=== PATIENT | female | born 1965 | race Asian ===

== ENCOUNTER 2018-02-02 14:25 | Inpatient (IN) | payer OTHER ==
[~2018-02-02 14:25] MED LIST: LIDOCAINE 2% (SDV) 5 ML INJ; METOCLOPRAMIDE 10 MG INJ
[2018-02-02 15:05] LABS: ADD MAN DIFF? NO
[2018-02-02 15:06] LABS: BASOPHILS % 0.8 % (0.0-2.0); EOSINOPHILS # 0.1 10^3/ul (0.0-0.5); EOSINOPHILS % 1.8 % (0.0-7.0); HEMOGLOBIN 14.2 g/dl (12.0-16.0); LYMPHOCYTES # 1.2 10^3/ul (0.8-2.9); MEAN CORPUSCULAR HEMOGLOBIN 29.7 pg (29.0-33.0); MEAN CORPUSCULAR HGB CONC 33.8 g/dl (32.0-37.0); MEAN CORPUSCULAR VOLUME 87.9 fl (82.0-101.0); MEAN PLATELET VOLUME 11.6 fl (7.4-10.4); MONOCYTE # 0.4 10^3/ul (0.3-0.9); NEUTROPHIL # 3.3 10^3/ul (1.6-7.5); NEUTROPHILS % 65.2 % (39.0-77.0); PLATELET COUNT 248 10^3/UL (140-415); RED BLOOD COUNT 4.78 10^6/ul (4.20-5.40); RED CELL DISTRIBUTION WIDTH 11.5 % (11.5-14.5)
[2018-02-02 15:27] LABS: ALANINE AMINOTRANSFERASE 33 IU/L (13-69); ALBUMIN/GLOBULIN RATIO 1.16; ALKALINE PHOSPHATASE 93 IU/L (42-121); ANION GAP 9 (5-13); ASPARTATE AMINO TRANSFERASE 33 IU/L (15-46); BILIRUBIN,INDIRECT 0.7 mg/dl (0-1.1); BILIRUBIN,TOTAL 0.7 mg/dl (0.2-1.3); BLOOD UREA NITROGEN 13 mg/dl (7-20); CARBON DIOXIDE 29 mmol/L (21-31); CHLORIDE 103 mmol/L (97-110); CREATININE 0.66 mg/dl (0.44-1.00); Estimated GFR > 60 mL/min (>60); GLUCOSE 99 mg/dl (70-220); POTASSIUM 3.7 mmol/L (3.5-5.1); SODIUM 141 mmol/L (135-144); TOTAL PROTEIN 9.3 g/dl (6.1-8.1)
[2018-02-02 15:28] LABS: INR 0.98; PROTIME 13.1 Sec (11.9-14.9)
[2018-02-02 15:29] LABS: PARTIAL THROMBOPLASTIN TIME 32.1 Sec (23.0-35.0)
[2018-02-02] MEDS ORDERED: FENTAnyl 50 MCG/ML VIAL (15:52)
[2018-02-02] MEDS ORDERED: MIDAZOLAM 1 MG/ML 2 ML INJ (15:53)
[2018-02-02] MEDS ORDERED: ONDANSETRON 4 MG INJ (16:08)
[2018-02-02] MEDS ORDERED: KETOROLAC 30 MG INJ IV (17:00)
[2018-02-02] MEDS: SOD CHLORIDE 0.9% 1,000 ML IV (17:00)
[2018-02-02] MEDS ORDERED: HYDROmorphONE 1 MG/5 ML IV SYRINGE IV ×2 (17:00)
[2018-02-02] MEDS ORDERED: hydrALAzine 20 MG INJ IV (17:00)
[2018-02-02] MEDS ORDERED: MEPERIDINE 25 MG INJ IV (17:00)
[2018-02-02] MEDS ORDERED: DIPHENHYDRAMINE 50 MG INJ IV (17:00)
[2018-02-02] MEDS ORDERED: FENTAnyl 50 MCG/ML VIAL IV ×2 (17:00)
[2018-02-02] MEDS: CEFAZOLIN 2 GM/50 ML (PMX) 50 ML IVPB (17:00)
[2018-02-02] MEDS ORDERED: LEVALBUTEROL (NEB) 1.25 MG/0.5 ML AMP HHN (17:00)
[2018-02-02] MEDS ORDERED: LABETALOL HCL 20MG INJ IV (17:00)
[2018-02-02] MEDS ORDERED: ONDANSETRON 4 MG INJ IV (19:00)
[2018-02-02] MEDS: HYDROmorphONE 1 MG/5 ML IV SYRINGE IV (19:08)
[2018-02-02] MEDS: ONDANSETRON 4 MG INJ IV (19:08)
[2018-02-02] MEDS: D5W-0.45 NACL + KCL 20 MEQ 1,000 ML IV (20:17)
[2018-02-02] MEDS: morphine 2 MG INJ IV (22:56)
[2018-02-03] MEDS: D5W-0.45 NACL + KCL 20 MEQ 1,000 ML IV ×2 (04:06→11:28)
[2018-02-03] MEDS: morphine 2 MG INJ IV ×2 (04:08→08:31)
[2018-02-03] MEDS: IBUPROFEN 400 MG TAB PO ×4 (06:00→17:13)
[2018-02-03 10:40] LABS: ADD MAN DIFF? NO
[2018-02-03 10:51] LABS: BASOPHILS % 0.4 % (0.0-2.0); EOSINOPHILS # 0.1 10^3/ul (0.0-0.5); EOSINOPHILS % 1.1 % (0.0-7.0); HEMATOCRIT 34.9 % (37.0-47.0); HEMOGLOBIN 11.5 g/dl (12.0-16.0); LYMPHOCYTES % 13.8 % (15.0-51.0); MEAN CORPUSCULAR HEMOGLOBIN 29.8 pg (29.0-33.0); MEAN CORPUSCULAR VOLUME 90.4 fl (82.0-101.0); MEAN PLATELET VOLUME 11.7 fl (7.4-10.4); MONOCYTE # 0.5 10^3/ul (0.3-0.9); MONOCYTES % 6.6 % (0.0-11.0); NEUTROPHIL # 5.8 10^3/ul (1.6-7.5); NEUTROPHILS % 77.8 % (39.0-77.0); PLATELET COUNT 194 10^3/UL (140-415); RED BLOOD COUNT 3.86 10^6/ul (4.20-5.40)
[2018-02-03 10:51] LABS: WHITE BLOOD COUNT 7.4 10^3/ul (4.8-10.8)
[2018-02-03 11:00] LABS: ANION GAP 7 (5-13); BLOOD UREA NITROGEN 3 mg/dl (7-20); CALCIUM 8.3 mg/dl (8.4-10.2); CARBON DIOXIDE 29 mmol/L (21-31); CHLORIDE 104 mmol/L (97-110); CREATININE 0.52 mg/dl (0.44-1.00); Estimated GFR > 60 mL/min (>60); GLUCOSE 235 mg/dl (70-220); POTASSIUM 4.1 mmol/L (3.5-5.1); SODIUM 140 mmol/L (135-144)
[2018-02-03] MEDS ORDERED: HYDROCODONE/APAP (5/325) TAB PO (11:00)
[2018-02-03] MEDS: HYDROCODONE/APAP (5/325) TAB PO (18:21)
[2018-02-03] MEDS ORDERED: VITAMIN A & D 5 GM OINT PACKET TOP (22:00)
[2018-02-04] MEDS: D5W-0.45 NACL + KCL 20 MEQ 1,000 ML IV (00:22)
[2018-02-04] MEDS: IBUPROFEN 400 MG TAB PO ×3 (00:22→13:19)
[2018-02-04 06:20] LABS: ADD MAN DIFF? NO
[2018-02-04 06:27] LABS: BASOPHILS % 0.4 % (0.0-2.0); EOSINOPHILS # 0.1 10^3/ul (0.0-0.5); EOSINOPHILS % 2.3 % (0.0-7.0); HEMATOCRIT 33.4 % (37.0-47.0); HEMOGLOBIN 10.9 g/dl (12.0-16.0); LYMPHOCYTES # 0.7 10^3/ul (0.8-2.9); LYMPHOCYTES % 13.1 % (15.0-51.0); MEAN CORPUSCULAR HEMOGLOBIN 29.6 pg (29.0-33.0); MEAN CORPUSCULAR HGB CONC 32.6 g/dl (32.0-37.0); MEAN CORPUSCULAR VOLUME 90.8 fl (82.0-101.0); MEAN PLATELET VOLUME 11.9 fl (7.4-10.4); MONOCYTE # 0.3 10^3/ul (0.3-0.9); MONOCYTES % 5.6 % (0.0-11.0); NEUTROPHIL # 4.5 10^3/ul (1.6-7.5); NEUTROPHILS % 78.4 % (39.0-77.0); PLATELET COUNT 173 10^3/UL (140-415); RED BLOOD COUNT 3.68 10^6/ul (4.20-5.40)
[2018-02-04 06:27] LABS: WHITE BLOOD COUNT 5.7 10^3/ul (4.8-10.8)
[2018-02-04 06:48] LABS: ANION GAP 6 (5-13); BLOOD UREA NITROGEN 7 mg/dl (7-20); CALCIUM 8.7 mg/dl (8.4-10.2); CARBON DIOXIDE 24 mmol/L (21-31); CHLORIDE 109 mmol/L (97-110); CREATININE 0.52 mg/dl (0.44-1.00); Estimated GFR > 60 mL/min (>60); GLUCOSE 139 mg/dl (70-220); POTASSIUM 4.2 mmol/L (3.5-5.1); SODIUM 139 mmol/L (135-144)
[2018-02-04] MEDS: AL HYDROX/MG HYDROX/SIMETH 30 ML CUP PO (14:08)
[2018-02-04] MEDS: PANTOPRAZOLE 40 MG INJ IV (14:11)
[2018-02-04] MEDS: BISACODYL 10 MG SUPP PR (14:14)
== END 2018-02-04 15:10 | disposition home or self-care (01) | DRG 581 ==
LOC: REC 14:25 → 2NE 20:00
PROC: 0HBU0ZZ Excision of Left Breast, Open Approach (ICD-10-PCS; principal; 2018-02-02 16:44)
PROC: 07B60ZX Excision of Left Axillary Lymphatic, Open Approach, Diagnostic (ICD-10-PCS; 2018-02-02 16:44)
DX: C50.912 Malignant neoplasm of unspecified site of left female breast (principal)
CPT/HCPCS: 71045; 80048; 80053; 84703; 85025; 85610; 85730; 88307; 93005

== ENCOUNTER 2018-07-21 11:16 | Emergency (ER) | payer OTHER ==
[2018-07-21 15:47] LABS: ADD MAN DIFF? NO
[2018-07-21] MEDS: ALBUTEROL 0.083% (NEB) 2.5 MG/3 ML AMP HHN (15:52)
[2018-07-21 15:54] LABS: ABNORMAL IP MESSAGE 1; BASOPHILS % 0.1 % (0.0-2.0); EOSINOPHILS % 0.2 % (0.0-7.0); HEMATOCRIT 38.5 % (37.0-47.0); HEMOGLOBIN 12.3 g/dl (12.0-16.0); LYMPHOCYTES # 0.4 10^3/ul (0.8-2.9); LYMPHOCYTES % 3.1 % (15.0-51.0); MEAN CORPUSCULAR HEMOGLOBIN 28.7 pg (29.0-33.0); MEAN CORPUSCULAR HGB CONC 31.9 g/dl (32.0-37.0); MEAN CORPUSCULAR VOLUME 89.7 fl (82.0-101.0); MEAN PLATELET VOLUME 10.1 fl (7.4-10.4); MONOCYTE # 0.3 10^3/ul (0.3-0.9); NEUTROPHIL # 10.5 10^3/ul (1.6-7.5); NEUTROPHILS % 93.2 % (39.0-77.0); PLATELET COUNT 173 10^3/UL (140-415); RED BLOOD COUNT 4.29 10^6/ul (4.20-5.40); RED CELL DISTRIBUTION WIDTH 16.5 % (11.5-14.5)
[2018-07-21 15:54] LABS: WHITE BLOOD COUNT 11.2 10^3/ul (4.8-10.8)
[2018-07-21 15:57] LABS: POSITIVE DIFF @See below
[2018-07-21] MEDS: SOD CHLORIDE 0.9% 1,000 ML IV ×2 (16:05→18:10)
[2018-07-21 16:47] LABS: ALANINE AMINOTRANSFERASE 32 IU/L (13-69); ALBUMIN 4.6 g/dl (3.3-4.9); ALBUMIN/GLOBULIN RATIO 1.17; ALKALINE PHOSPHATASE 129 IU/L (42-121); ANION GAP 11 (5-13); ASPARTATE AMINO TRANSFERASE 50 IU/L (15-46); BILIRUBIN,INDIRECT 0.5 mg/dl (0-1.1); BILIRUBIN,TOTAL 0.5 mg/dl (0.2-1.3); BLOOD UREA NITROGEN 9 mg/dl (7-20); CALCIUM 10.5 mg/dl (8.4-10.2); CARBON DIOXIDE 31 mmol/L (21-31); CHLORIDE 102 mmol/L (97-110); CREATININE 0.54 mg/dl (0.44-1.00); Estimated GFR > 60 mL/min (>60); GLUCOSE 126 mg/dl (70-220); POTASSIUM 4.2 mmol/L (3.5-5.1); SODIUM 144 mmol/L (135-144); TOTAL PROTEIN 8.5 g/dl (6.1-8.1)
[2018-07-21] MEDS: CEFTRIAXONE 1 GM/50 ML (PMX) 50 ML IVPB (17:38)
[2018-07-21] MEDS: ONDANSETRON 4 MG INJ IV (19:19)
[2018-07-21] MEDS: morphine 2 MG INJ IV (19:19)
== END 2018-07-21 19:45 | disposition home or self-care (01) ==
LOC: E/R 11:16
DX: R05 Cough (principal); J02.9 Acute pharyngitis, unspecified; Z85.3 Personal history of malignant neoplasm of breast
CPT/HCPCS: 71045; 80053; 83605; 85025; 87040-91; 94664; 96361; 96365; 96375; 99284-25